=== PATIENT | female | born 1950 | race Caucasian/White ===

== ENCOUNTER 2020-07-25 06:02 | Inpatient (IN) ==
[2020-07-18 15:17] LABS: Basophils # (Auto) 0.07 K/mcL (0.00-0.20); Basophils % (Auto) 1.1 % (0.0-2.0); Eosinophils # (Auto) 0.23 K/mcL (0.00-0.70); Eosinophils % (Auto) 3.6 % (0.0-7.0); Hematocrit 44.5 % (36.0-48.0); Hemoglobin 14.8 g/dL (12.0-15.0); Lymphocytes # (Auto) 2.57 K/mcL (1.50-4.80); Lymphocytes % (Auto) 40.5 % (15.0-49.0); Mean Cell Volume 92.1 fL (80.0-100.0); Mean Corpuscular HGB Conc 33.3 g/dL (31.0-36.0); Mean Platelet Volume 9.8 fL (7.4-10.4); Monocytes # (Auto) 0.54 K/mcL (0.10-0.90); Monocytes % (Auto) 8.5 % (1.0-12.0); Neutrophils % (Auto) 46.3 % (38.0-78.0); Platelet Count 332 K/mcL (140-440); RBC 4.83 M/mcL (4.00-5.20); Red Cell Distribution Width 12.7 % (11.5-14.5); WBC 6.3 K/mcL (4.5-11.0)
[2020-07-18 15:41] LABS: Appearance,Urine CLEAR (Clear); Bilirubin,Urine Negative (Negative); Color,Urine YELLOW; Culture Indicated,Urine No; Glucose,Urine (UA) Negative (Negative); Ketones,Urine Negative (Negative); Leukocyte Esterase,Urine Negative /ug (Negative); Nitrate,Urine Negative (Negative); Protein,Urine Negative (Negative); Specific Gravity,Urine 1.013 (1.000-1.035); Urine Blood Negative (Negative); Urobilinogen,Urine Negative
[2020-07-18 15:45] LABS: Blood Urea Nitrogen 17 mg/dL (8-23); Calcium 9.7 mg/dL (8.6-10.4); Carbon Dioxide 26 mmol/L (22-30); Chloride 103 mmol/L (96-108); Glomerular Filtration Rate 45; Glucose 91 mg/dL (70-105)
[~2020-07-25 06:02] MED LIST: ACETAMINOPHEN 500 MG TABLET PO SCH; CELECOXIB 200 MG CAPSULE PO SCH; IPRATROPIUM/ALBUTEROL 3 ML AMPUL.NEB NEB PRN; PREGABALIN 75 MG CAPSULE PO SCH; SCOPOLAMINE 1 PATCH PATCH TOPICAL PRN; ceFAZolin 2 GM in DEXTROSE 5% IN WATER 50 ML IV SCH; oxyCODONE 10 MG TAB.ER.12H PO SCH
[2020-07-25] MEDS ORDERED: KETAMINE 100 MG/ML ML ONE (08:49)
[2020-07-25] MEDS ORDERED: TRANEXAMIC ACID 1,000 MG/10 ML VIAL IV ONE (08:49)
[2020-07-25] MEDS ORDERED: PROPOFOL 200 MG/20 ML VIAL IV ONE (08:49)
[2020-07-25] MEDS ORDERED: ONDANSETRON 4 MG/2 ML VIAL ONE (08:49)
[2020-07-25] MEDS ORDERED: MIDAZOLAM 2 MG/2 ML VIAL ONE (08:49)
[2020-07-25] MEDS ORDERED: LIDOCAINE HCL/PF 100 MG/5 ML SYRINGE IV ONE (08:49)
[2020-07-25] MEDS ORDERED: PHENYLEPHRINE 10 MG/ML VIAL ONE (08:49)
[2020-07-25] MEDS ORDERED: DEXAMETHASONE 10 MG/ML VIAL ONE (08:49)
[2020-07-25] MEDS ORDERED: GLYCOPYRROLATE 0.2 MG/ML VIAL IV ONE (08:49)
[2020-07-25] MEDS ORDERED: fentaNYL 100 MCG/2 ML VIAL IV ONE (08:49)
[2020-07-25] MEDS ORDERED: BENZOCAINE/MENTHOL 1 LOZENGE PO PRN ×2 (08:58→09:48)
[2020-07-25] MEDS ORDERED: TRANEXAMIC ACID 1,000 MG/10 ML VIAL IV SCH (08:58)
[2020-07-25] MEDS ORDERED: ACETAMINOPHEN 325 MG TABLET PO PRN (08:58)
[2020-07-25] MEDS ORDERED: POLYETHYLENE GLYCOL 3350 17 GM PACKET PO PRN (08:58)
[2020-07-25] MEDS ORDERED: MAGNESIUM HYDROXIDE 30 ML ORAL.SUSP PO PRN (08:58)
[2020-07-25] MEDS ORDERED: HYDROmorphone 1 MG/ML SYRINGE IV PRN (08:58)
[2020-07-25] MEDS ORDERED: BISACODYL 10 MG SUPP.RECT PR PRN (08:58)
[2020-07-25] MEDS ORDERED: ONDANSETRON 4 MG/2 ML VIAL IV PRN ×2 (08:58→09:48)
[2020-07-25] MEDS ORDERED: FLEETS ADULT ENEMA PR PRN (08:58)
--- NOTE | 2020-07-25 08:58 | Brief Operative Note ---
Brief Operative Note Date of procedure: 07/25/20 Pre-op diagnosis: Right shoulder djd and torn bicep Post-op diagnosis: same Procedure: Right shoulder reverse tsa and bicep tenodesis Grafts/Implants: Yes Anesthesia: GETA Complications: none Surgeon: Nabil Lu Supervisor Ride Assembly: Sp White Estimated blood loss (cc): 50 Tourniquet Time (Minutes): 0 Specimens Removed/Pathology: none sent Condition: stable Disposition: PACU
[2020-07-25] MEDS ORDERED: METHOCARBAMOL 1,000 MG/10 ML VIAL IV PRN (09:48)
[2020-07-25] MEDS ORDERED: PROMETHAZINE 25 MG/ML VIAL IV PRN (09:48)
[2020-07-25] MEDS ORDERED: LABETALOL 5 MG/ML ML IV PRN (09:48)
[2020-07-25] MEDS ORDERED: MEPERIDINE 25 MG/ML SYRINGE IV PRN (09:48)
[2020-07-25] MEDS ORDERED: IPRATROPIUM/ALBUTEROL 3 ML AMPUL.NEB NEB PRN (09:48)
[2020-07-25] MEDS ORDERED: METOPROLOL TARTRATE 5 MG/5 ML VIAL IV PRN (09:48)
[2020-07-25] MEDS ORDERED: fentaNYL 100 MCG/2 ML VIAL IV PRN (09:48)
[2020-07-25] MEDS ORDERED: ePHEDrine 50 MG/ML AMPUL IV PRN (09:48)
[2020-07-25] MEDS ORDERED: LACTATED RINGERS 1,000 ML IV SCH (10:00)
--- NOTE | 2020-07-25 10:13 | Operative Note ---
DATE OF OPERATION: 07/25/2020 PREOPERATIVE DIAGNOSIS: Right rotator cuff arthropathy and biceps tendonopathy. POSTOPERATIVE DIAGNOSIS: Right rotator cuff arthropathy and biceps tendonopathy. PROCEDURE: Right reverse total shoulder biceps tenodesis. SURGEON: Nabil Lu M.D. COMBINATION BUILDING INSPECTOR: Sp White PA-C. The PA's assistance was required for the safe and efficient completion of the entire case. This providers expertise and technical skill were required throughout the case. The PA assisted with preoperative coordination, intraoperative retraction, wound closure, dressing and splint application, as well as postoperative documentation and care coordination. ANESTHESIA: General LMA anesthesia. COMPLICATIONS: None. DESCRIPTION OF PROCEDURE: The patient was brought to the operating room, put to sleep with general LMA anesthesia. We placed Ioban over the skin. We made a deltopectoral approach, revealing the subscap which was released. She was absent her supraspinatus and infraspinatus. The biceps tendon was released and repaired to the pec major with #2 Ethibond with two [id number] stitches. We then made the neck cut on the humeral head at 130 degrees with 20 degrees of retroversion. We placed a protective cap and this was retracted posteriorly. We performed a 360-degree capsular release and released the remnants of the biceps. We placed a guidewire in the middle of the glenoid and then we reamed up to the size 40. We implanted the metaglene with a central screw measuring 36, superior screw 24, inferior screw 36, and anterior screw 40. I then placed a 36 mm glenosphere with 2 mm of offset, 2 mm of eccentricity. This was tapped into place and then broached up to a size 9 stem. We trialed the size 9 stem humeral component and then with a 6 mm poly. This was reduced and good tension was achieved. Excellent range of motion, very stable throughout the arc of motion. We irrigated thoroughly. We placed a small amount of cement given the poor bone quality on the distal portion of the stem, porous ingrowth proximally, and then placed a +6 mm poly. We reduced the shoulder and then repaired the deltopectoral interval. We closed the skin with Stratafix and then an adhesive closure. We irrigated thoroughly and placed a sterile bandage. A Donjoy sling was placed. PIERRE:fredo Job ID: [id number] Doc ID: [id number] Nabil Lu MD
--- NOTE | 2020-07-25 10:18 | Discharge Plan ---
Discharge Instructions - TSA Patient Instructions Total Shoulder Protocol: Leave immobilizer in place except for bathing and ROM. Abduction pillow. Continue to wear sling until seen by physician. Codman Pendulum : These exercises use momentum produced by your body to move your shoulder joint. Bend your knees and shift your weight to your front leg, then back, allowing your arm to swing in the same directions. Using the same technique, alternately shift your weight between your right and left legs, allowing your arm to swing from side to side. These exercises are also performed in counterclockwise and clockwise circular motions. Typically these exercises are performed several times per day, for a set number repetitions or minutes, such as 20 times in a row or 5 minutes at a time. Discharge Plan Patient/Caregiver Discharge Instructions Activity: as per physical therapy Diet: Regular Diet Prescriptions: New hydrocodone-acetaminophen 10-325 mg Tablet 1 - 2 tab PO Q4HP PRN (Reason: Pain Level 3-6) Qty: 75 RF: 0 docusate sodium 100 mg Capsule 100 mg PO BID Qty: 60 RF: 0 No Action vitamin B complex [B Complex-Vitamin B12] Tablet 1 tab PO QDAY RF: 0 cholecalciferol (vitamin D3) [Vitamin D3] 25 mcg (1,000 unit) Capsule 25 mcg PO QDAY RF: 0 [id number] 333-133-5 mg Tablet 1 tab PO DAILY RF: 0 Other Ambulatory Orders: Brace/Splint (ONCE) Location: None Selected Ordered By: Sp White Physical Therapy CT - TSA (Routine) Location: None Selected Ordered By: Sp White Follow Up Plan Follow up with: Sp White PA-C [Physician Vacuum Spindle Sander] - 08/07/20 1:10 pm Patient Disposition: Home, Self-Care Prognosis: Good Rehab Potential: Good I certify that the patient requires SNF services: No Overall status at discharge: patient is progressing back to baseline Discharge Orders: Discharge Order (Routine); Ordered 07/26/20 Ordered By: Sp White
[2020-07-25] MEDS ORDERED: GENTAMICIN SULFATE 800 MG/20 ML VIAL IR ONE (10:21)
--- NOTE | 2020-07-25 10:47 | XRay Report ---
INDICATION: Post-OP Total Shoulder TECHNIQUE: AP and Y views of the right shoulder COMPARISON: None. FINDINGS: Status post right reverse shoulder arthroplasty. Postsurgical alignment is anatomic. Incidental note is made of degenerative joint disease in the acromioclavicular joint IMPRESSION: Status post reverse right shoulder arthroplasty Interpreted and Authenticated by: Aguila Bautista 07/25/20
[2020-07-25] MEDS: DOCUSATE SODIUM 100 MG CAPSULE PO SCH ×2 (11:04→20:27)
[2020-07-25] MEDS: LACTATED RINGERS 1,000 ML IV SCH ×2 (11:06→19:46)
[2020-07-25] MEDS: ceFAZolin 1 GM VIAL IV SCH (17:46)
[2020-07-25] MEDS: 0.9 % SODIUM CHLORIDE 10 ML SYRINGE IV SCH ×2 (17:51→20:27)
[2020-07-25] MEDS ORDERED: SENNOSIDES 1 TABLET PO SCH (21:00)
[2020-07-25] MEDS ORDERED: TEMAZEPAM 15 MG CAPSULE PO PRN (21:00)
[2020-07-26] MEDS: ceFAZolin 1 GM VIAL IV SCH (00:20)
[2020-07-26] MEDS: HYDROcodone/APAP 10/325MG TABLET PO PRN ×2 (03:41→09:25)
[2020-07-26] MEDS: LACTATED RINGERS 1,000 ML IV SCH (03:42)
[2020-07-26] MEDS: 0.9 % SODIUM CHLORIDE 10 ML SYRINGE IV SCH ×2 (03:42→05:01)
[2020-07-26] MEDS ORDERED: VITAMIN D3 1,000 UNIT TABLET PO SCH (09:00)
[2020-07-26] MEDS ORDERED: VITAMIN B COMPLEX 1 CAPSULE PO SCH (09:00)
[2020-07-26] MEDS ORDERED: CALCIUM (OYSTER SHELL) 500 MG TABLET PO SCH (09:00)
[2020-07-26] MEDS ORDERED: ZINC SULFATE 50 MG CAPSULE PO SCH (09:00)
[2020-07-26] MEDS ORDERED: MAGNESIUM OXIDE 400 MG TABLET PO SCH (09:00)
[2020-07-26] MEDS: DOCUSATE SODIUM 100 MG CAPSULE PO SCH (09:08)
[2020-07-26] MEDS ORDERED: PNEUMOCOCCAL 23-VAL P-SAC VAC 0.5 ML SYRINGE IM ONE (10:00)
== END 2020-07-26 10:28 | disposition home or self-care (01) | DRG 483 ==
LOC: MEDSUR 06:02
PROVIDERS: ADMIT Orthopaedic Surgery; ATTEND Orthopaedic Surgery